=== PATIENT | female | born 1990 | race Caucasian/White ===

== ENCOUNTER 2025-01-23 09:07 | Outpatient (CLI) | payer BC, SELFPAY | END 2025-01-23 09:08 | disposition home or self-care (01) | PROVIDERS: PCP Family Medicine; Visit Provider Family Medicine | DX: N64.3 Galactorrhea not associated with childbirth (principal); R53.83 Other fatigue | CPT/HCPCS: 80053; 84146; 84443 ==

== ENCOUNTER 2025-02-04 09:20 | Outpatient (CLI) | payer BC, SELFPAY | END 2025-02-04 09:21 | disposition home or self-care (01) | LOC: NFLDREF 02-12 16:15 | PROVIDERS: PCP Family Medicine; Referring Provider Family Medicine; Visit Provider Family Medicine | DX: M25.50 Pain in unspecified joint (principal) | CPT/HCPCS: 86038; 86200; 86431 ==

== ENCOUNTER 2025-02-07 07:12 | Outpatient (CLI) | payer BC, SELFPAY ==
--- NOTE | 2025-02-07 07:15 | CRLHL7_ITS ---
For Patients: As a result of the Century Cures Act, medical imaging exams and procedure reports are released immediately into your electronic medical record. You may view this report before your referring provider. If you have questions, please contact your health care provider. INDICATION: Abnormal findings of blood chemistry. TECHNIQUE: Multisequence multiplanar MRI of the brain prior to and following administration of 15 cc Dotarem gadolinium-based intravenous contrast. Pituitary protocol was performed dedicated imaging through the sella [facility]. COMPARISON: None available. FINDINGS: 3 mm focus of hypoenhancement at the lateral margin of the left anterior pituitary gland (series 10, image 10). Midline pituitary infundibulum. Unremarkable optic chiasm and cavernous internal carotid arteries. No evidence of acute ischemia. Normal signal intensity of the brain parenchyma. No focus of abnormal brain parenchymal or leptomeningeal enhancement. The ventricles are normal in size. Flow voids in the larger intracranial arteries are preserved. Bone marrow signal intensity of the calvarium is within normal limits. A postinflammatory left nasopharyngeal retention cyst is noted. The paranasal sinuses and mastoid air cells are predominantly clear. IMPRESSION: 3 mm hypoenhancing focus at the lateral margin of the left anterior pituitary gland (series 10, image 10), potentially related to heterogeneous vascularity, however a microadenoma could be considered in the appropriate clinical/laboratory context. Dictated by Jair Mantilla MD @ 02/07/2025 2:45:52 PM (Electronically Signed)
== END 2025-02-07 07:13 | disposition home or self-care (01) ==
LOC: MRI 07:13
PROVIDERS: PCP Family Medicine; Visit Provider Obstetrics & Gynecology
DX: R79.89 Other specified abnormal findings of blood chemistry (principal); E23.6 Other disorders of pituitary gland
CPT/HCPCS: 70553; A9575